=== PATIENT | male | born 1955 | race African-American/Black ===

== ENCOUNTER 2019-02-14 10:04 | Inpatient (IN) | payer OTHER ==
[2019-02-14 11:23] VITALS: BMI 21.7
--- NOTE | 2019-02-14 12:12 | HP ---
CIWA Score Nausea/Vomitin Muscle Tremors: 2 Anxiety: 3 Agitation: 3 Paroxysmal Sweats: No Perspiration Orientation: 0-Oriented Tacttile Disturbances: 1-Very Mild Itch/Numbness Auditory Disturbances: 0-None Visual Disturbances: 0-None Headache: 2-Mild CIWA-Ar Total Score: 13 - Admission Criteria OASAS Guidelines: Admission for Medically Managed Detox: Requires at least one of the followin. CIWA greater than 12 2. Seizures within the past 24 hours 3. Delirium tremens within the past 24 hours 4. Hallucinations within the past 24 hours 5. Acute intervention needed for co occurring medical disorder 6. Acute intervention needed for co occurring psychiatric disorder 7. Severe withdrawal that cannot be handled at a lower level of care (continued vomiting, continued diarrhea, abnormal vital signs) requiring intravenous medication and/or fluids 8. Admitting History and Physical - Smoking History Smoking history: Current every day smoker Have you smoked in the past 12 months: Yes Aproximately how many cigarettes per day: 5 - Alcohol/Substance Use Hx Alcohol Use: Yes Admission ROS BHS - HPI Chief Complaint: i need help to stop drinking alcohol Allergies/Adverse Reactions: Allergies Allergy/AdvReac Type Severity Reaction Status Date / Time No Known Allergies Allergy Verified 02/14/19 11:13 History of Present Illness: this 63 years old male with alcohol dependence seeking help to stop drinking, history of seizure ,last 2 years ago last detox [facility] 06/11/13 to 06/15/13 last rehab in [place] 06/24 depression,do not want to see psychiatrist longest sobriety 6 months plan for relocate after detox Exam Limitations: No Limitations - Ebola screening Have you traveled outside of the country in the last 21 days: No (N) Have you had contact with anyone from an Ebola affected area: No Do you have a fever: No - Review of Systems Constitutional: Loss of Appetite, Malaise, Night Sweats, Changes in sleep EENT: reports: Nose Congestion Respiratory: reports: No Symptoms reported Cardiac: reports: No Symptoms Reported GI: reports: Diarrhea, Nausea, Vomiting, Indigestion : reports: No Symptoms Reported Musculoskeletal: reports: Back Pain, Muscle Pain Integumentary: reports: Dryness Neuro: reports: Tremors Endocrine: reports: No Symptoms Reported Hematology: reports: No Symptoms Reported Psychiatric: reports: No Sypmtoms Reported, Judgement Intact, Mood/Affect Appropiate, Orientated x3, Depressed Other Systems: Reviewed and Negative Patient History - Patient Medical History Hx Anemia: No Hx Asthma: No Hx Chronic Obstructive Pulmonary Disease (COPD): No Hx Cancer: No Hx Cardiac Disorders: No Hx Congestive Heart Failure: No Hx Hypertension: No Hx Hypercholesterolemia: No Hx Pacemaker: No HX Cerebrovascular Accident: No Hx Seizures: Yes (09/2012) Hx Dementia: No Hx Diabetes: No Hx Gastrointestinal Disorders: No Hx Liver Disease: No Hx Genitourinary Disorders: No Hx Sexually Transmitted Disorders: No Hx Renal Disease (ESRD): No Hx Thyroid Disease: No Hx Human Immunodeficiency Virus (HIV): No (unknown did not want to be tested) Hx Hepatitis C: No Hx Depression: Yes Hx Suicide Attempt: No Hx Bipolar Disorder: No Hx Schizophrenia: No Other Medical History: no suicidal,no homicidal - Patient Surgical History Past Surgical History: Yes Hx Neurologic Surgery: No Hx Cataract Extraction: No Hx Cardiac Surgery: No Hx Lung Surgery: No Hx Breast Surgery: No Hx Breast Biopsy: No Hx Abdominal Surgery: No Hx Appendectomy: No Hx Cholecystectomy: No Hx Genitourinary Surgery: No Hx Section: No Hx Orthopedic Surgery: No Other Surgical History: removal of mass from scalp,benign in 2004 - PPD History Date: 06/13/13 - Smoking Cessation Smoking history: Former smoker Have you smoked in the past 12 months: Yes Aproximately how many cigarettes per day: 5 If you are a former smoker, when did you quit?: 01/20/19 Initiated information on smoking cessation: Yes 'Breaking Loose' booklet given: 02/14/19 - Substance & Tx. History Hx Alcohol Use: Yes Hx Substance Use: No Substance Use Type: Alcohol Hx Substance Use Treatment: Yes ([facility] 06/11/13 to 06/15/13,rehab 06/24 [facility]) - Substances abused Alcohol Frequency: Daily Amount used: 1-2 pints of vodka & 6 of 1 ozs of beer Age of first use: 23 Date of last use: 02/13/19 Marijuana/Hashish Substance route: Smoking Frequency: 3-6 times per week Amount used: 5 $ Age of first use: 19 Date of last use: 02/13/19 Admission Physical Exam BHS - Vital Signs Vital Signs: Vital Signs - 24 hr 02/14/19 02/14/19 11:16 11:45 Temperature 96.3 F L 96.3 F L Pulse Rate 80 80 Respiratory 20 20 Rate Blood Pressure 114/74 114/74 - Physical General Appearance: Yes: Moderate Distress, Tremorous, Irritable, Sweating, Anxious HEENTM: Yes: Normal ENT Inspection, [place], Pharynx Normal Respiratory: Yes: Lungs Clear, Normal Breath Sounds, No Respiratory Distress Neck: Yes: Within Normal Limits, Supple, Trachea in good position Breast: Yes: Within Normal Limits Cardiology: Yes: Within Normal Limits, Regular Rhythm, Regular Rate, S1, S2 Abdominal: Yes: Within Normal Limits Genitourinary: Yes: Within Normal Limits Back: Yes: Muscle Spasm Musculoskeletal: Yes: Back pain, Muscle Pain Extremities: Yes: Tremors Neurological: Yes: professional driver II-XII NML intact, Fully Oriented, Alert, Motor Strength 5/5 Integumentary: Yes: Dry Lymphatic: Yes: Within Normal Limits - Diagnostic (1) Alcohol dependence with uncomplicated withdrawal Current Visit: Yes Status: Acute (2) Seizure Current Visit: No Status: Active (3) Cannabis dependence Current Visit: Yes Status: Acute (4) syncope alcohol related Current Visit: No Status: Active (5) Low back pain Current Visit: No Status: Acute Cleared for Admission S - Detox or Rehab [facility] Level of Care: Medically Managed Detox Regimen/Protocol: Librium Breathalyzer - Breathalyzer Breathalyzer: 0.025 Urine Drug Screen - Test Device Lot number: [id number] Expiration date: 11/05/20 - Control Is test valid?: Yes - Results Drug screen NEGATIVE: No Urine drug screen results: THC-Marijuana Inpatient Rehab Admission - Rehab Decision to Admit Inpatient rehab admission?: No
[2019-02-14] MEDS ORDERED: METHOCARBAMOL 500 MG TABLET PO PRN (12:26)
[2019-02-14] MEDS ORDERED: MENTHOL/PHENOL 1 EACH UD MM PRN (12:26)
[2019-02-14] MEDS ORDERED: MAGNESIUM HYDROX 2400MG/30ML ORAL SUSPENSION 30 ML CUP PO PRN (12:26)
[2019-02-14] MEDS ORDERED: MAGNESIUM CITRATE 300 ML BOTTLE PO PRN (12:26)
[2019-02-14] MEDS ORDERED: MAG HYDROX/AL HYDROX/SIMETH 30 ML UNIT-DOSE CUP PO PRN (12:26)
[2019-02-14] MEDS ORDERED: ACETAMINOPHEN 325 MG TABLET (FP) PO PRN (12:26)
[2019-02-14] MEDS ORDERED: hydrOXYzine PAMOATE 25 MG CAPSULE (FP) PO PRN (12:26)
[2019-02-14] MEDS: chlordiazePOXIDE HCL 25 MG CAPSULE PO PRN (14:07)
[2019-02-14] MEDS: levETIRAcetam 500 MG TABLET (FP) PO SCH ×2 (14:07→22:10)
[2019-02-14] MEDS: chlordiazePOXIDE HCL 25 MG CAPSULE PO SCH ×2 (17:19→22:10)
[2019-02-14] MEDS: THIAMINE HCL 100 MG TABLET (FP) PO SCH (22:10)
[2019-02-14] MEDS: MELATONIN 5 MG TABLETS PO PRN (22:11)
[2019-02-15] MEDS: BISMUTH SUBSALICYLATE 524 MG/30 ML UD PO PRN ×3 (01:56→22:26)
[2019-02-15] MEDS: chlordiazePOXIDE HCL 25 MG CAPSULE PO PRN (01:56)
[2019-02-15] MEDS: chlordiazePOXIDE HCL 25 MG CAPSULE PO SCH ×4 (05:40→22:04)
--- NOTE | 2019-02-15 09:58 | PN ---
[facility] CIWA - CIWA Score Nausea/Vomitin-Mild Nausea/No Vomiting Muscle Tremors: 4-Moderate,w/Arms Extend Anxiety: 3 Agitation: 2 Paroxysmal Sweats: 1-Minimal Palms Moist Orientation: 1-Uncertain about Date (date of week) Tacttile Disturbances: 0-None Auditory Disturbances: 0-None Visual Disturbances: 0-None Headache: 0-None Present CIWA-Ar Total Score: 12 S Progress Note (SOAP) Subjective: 63 years old male admitted on 02/14/19 for alcohol withdrawal sx management treated with librium detox regimen patient tolerated well ate breakfast tolerated food and fluid well resting on bed prefers to stay in bed today Objective: 02/15/19 09:57 Vital Signs Temperature 97.2 F L 02/15/19 09:02 Pulse Rate 77 02/15/19 09:02 Respiratory Rate 18 02/15/19 09:02 Blood Pressure 101/69 02/15/19 09:02 O2 Sat by Pulse Oximetry (%) 02/15/19 09:57 lab pending Assessment: 02/15/19 09:57 alcohol withdrawal sx Plan: continue librium detox regimen
[2019-02-15] MEDS: PRENATAL VITAMINS W/ FOLIC ACID TABLET (FP) PO SCH (10:20)
[2019-02-15 10:29] LABS: HEMATOCRIT 38.5 % (35.4-49); HEMOGLOBIN 12.7 GM/dL (11.7-16.9); MCH 31.6 pg (25.7-33.7); MCHC 33.1 g/dl (32.0-35.9); MEAN CELL VOLUME 95.7 fl (80-96); MEAN PLT VOLUME 8.8 fl (7.5-11.1); PLATELET COUNT 169 K/MM3 (134-434); RBC 4.02 M/mm3 (4.00-5.60); RDW 13.6 % (11.9-15.9); WHITE BLOOD COUNT 4.4 K/mm3 (4.0-10.0)
[2019-02-15 10:30] LABS: ALBUMIN 3.7 g/dl (3.4-5.0); BILIRUBIN,TOTAL 1.2 mg/dL (0.2-1); BLOOD UREA NITROGEN 8.5 mg/dL (7-18); CALCIUM 8.6 mg/dL (8.5-10.1); CREATININE 0.8 mg/dL (0.55-1.3); POTASSIUM 4.1 mmol/L (3.5-5.1); TOT PROT 6.1 g/dl (6.4-8.2)
[2019-02-15] MEDS: levETIRAcetam 500 MG TABLET (FP) PO SCH ×2 (11:33→22:04)
[2019-02-15] MEDS: THIAMINE HCL 100 MG TABLET (FP) PO SCH (22:03)
[2019-02-15] MEDS: MELATONIN 5 MG TABLETS PO PRN (22:04)
[2019-02-16] MEDS: BISMUTH SUBSALICYLATE 524 MG/30 ML UD PO PRN ×4 (01:59→22:12)
[2019-02-16] MEDS: MELATONIN 5 MG TABLETS PO PRN ×2 (02:00→22:10)
[2019-02-16] MEDS: chlordiazePOXIDE HCL 25 MG CAPSULE PO SCH ×4 (06:01→22:09)
--- NOTE | 2019-02-16 09:54 | PN ---
[facility] CIWA - CIWA Score Nausea/Vomitin-Mild Nausea/No Vomiting Muscle Tremors: 3 Anxiety: 2 Agitation: 1-Slight > Activity Paroxysmal Sweats: 2 Orientation: 1-Uncertain about Date Tacttile Disturbances: 1-Very Mild Itch/Numbness Auditory Disturbances: 0-None Visual Disturbances: 0-None Headache: 0-None Present CIWA-Ar Total Score: 11 BHS Progress Note (SOAP) Subjective: 63 years old male admitted on 02/14/19 for alcohol withdrawal sx management treated with librium detox regimen patient is alert oriented x 3 ate breakfast resting on bed patient requests to be discharged on estimated date on 02/19/19 and bringing home librium discuss alcohol treatment options emphasizing behavior and psychosocial therapies Objective: 02/16/19 09:54 Vital Signs Temperature 97.6 F 02/16/19 09:20 Pulse Rate 76 02/16/19 09:20 Respiratory Rate 18 02/16/19 09:20 Blood Pressure 96/67 02/16/19 09:20 O2 Sat by Pulse Oximetry (%) Laboratory Last Values WBC 4.4 K/mm3 (4.0-10.0) 02/15/19 07:50 RBC 4.02 M/mm3 (4.00-5.60) 02/15/19 07:50 Hgb 12.7 GM/dL (11.7-16.9) 02/15/19 07:50 Hct 38.5 % (35.4-49) 02/15/19 07:50 MCV 95.7 fl (80-96) 02/15/19 07:50 MCH 31.6 pg (25.7-33.7) 02/15/19 07:50 MCHC 33.1 g/dl (32.0-35.9) 02/15/19 07:50 RDW 13.6 % (11.9-15.9) 02/15/19 07:50 Plt Count 169 K/MM3 (134-434) 02/15/19 07:50 MPV 8.8 fl (7.5-11.1) D 02/15/19 07:50 Sodium 140 mmol/L (136-145) 02/15/19 07:40 Potassium 4.1 mmol/L (3.5-5.1) 02/15/19 07:40 Chloride 106 mmol/L (98-107) 02/15/19 07:40 Carbon Dioxide 30 mmol/L (21-32) 02/15/19 07:40 Anion Gap 5 MMOL/L (8-16) L 02/15/19 07:40 BUN 8.5 mg/dL (7-18) 02/15/19 07:40 Creatinine 0.8 mg/dL (0.55-1.3) 02/15/19 07:40 Est GFR (CKD-EPI)AfAm 111.74 02/15/19 07:40 Est GFR (CKD-EPI)NonAf 96.41 02/15/19 07:40 Random Glucose 88 mg/dL (74-106) 02/15/19 07:40 Calcium 8.6 mg/dL (8.5-10.1) 02/15/19 07:40 Total Bilirubin 1.2 mg/dL (0.2-1) H 02/15/19 07:40 AST 45 U/L (15-37) H 02/15/19 07:40 ALT 47 U/L (13-61) 02/15/19 07:40 Alkaline Phosphatase 74 U/L (45-117) 02/15/19 07:40 Total Protein 6.1 g/dl (6.4-8.2) L 02/15/19 07:40 Albumin 3.7 g/dl (3.4-5.0) 02/15/19 07:40 RPR Titer Nonreactive (NONREACTIVE) 02/15/19 07:40 lab noted Assessment: 02/16/19 09:54 alcohol withdrawal sx Plan: continue librium detox regimen
[2019-02-16] MEDS: levETIRAcetam 500 MG TABLET (FP) PO SCH ×2 (10:21→22:09)
[2019-02-16] MEDS: PRENATAL VITAMINS W/ FOLIC ACID TABLET (FP) PO SCH (10:21)
[2019-02-16] MEDS: IBUPROFEN 400 MG TABLET (FP) PO PRN ×2 (14:19→22:09)
[2019-02-16] MEDS: ACETAMINOPHEN 325 MG TABLET (FP) PO PRN (17:37)
[2019-02-16] MEDS: THIAMINE HCL 100 MG TABLET (FP) PO SCH (22:09)
[2019-02-17] MEDS ORDERED: chlordiazePOXIDE HCL 10 MG CAPSULE PO PRN
[2019-02-17] MEDS: chlordiazePOXIDE HCL 10 MG CAPSULE PO SCH ×2 (05:43→10:03)
[2019-02-17] MEDS: ACETAMINOPHEN 325 MG TABLET (FP) PO PRN (07:48)
[2019-02-17 09:31] LABS: URINE APPEARANCE CLEAR; URINE BILIRUBIN NEGATIVE (NEGATIVE); URINE COLOR YELLOW; URINE GLUCOSE (UA) NEGATIVE (NEGATIVE); URINE KETONE NEGATIVE (NEGATIVE); URINE LEUK ESTERASE NEGATIVE (NEGATIVE); URINE NITRITE NEGATIVE (NEGATIVE); URINE PROTEIN NEGATIVE (NEGATIVE); URINE UROBILINOGEN 0.2 mg/dL (0.2-1.0)
[2019-02-17 09:37] VITALS: BP 102/72; PULSE 70; TEMP 96.6
[2019-02-17] MEDS: PRENATAL VITAMINS W/ FOLIC ACID TABLET (FP) PO SCH (10:01)
[2019-02-17] MEDS: levETIRAcetam 500 MG TABLET (FP) PO SCH (10:01)
--- NOTE | 2019-02-17 13:35 | DS ---
[facility] Detox Discharge Summary Admission Date: 02/14/19 Discharge Date: 02/17/19 - History Present History: Alcohol Dependence Additional Comments: 63 years old male admitted on 02/14/19 for alcohol withdrawal sx management treated with librium detox regimen patient is alert oriented x 3 respiratory clear lung bilaterally on auscultation abdomen soft no rebound tenderness extremities full range of motion Pertinent Past History: patient prefers to leave the detox unit today case discuss with nurse and counselor patient can be discharged to aftercare - Physical Exam Results Vital Signs: Vital Signs Temperature 96.6 F L 02/17/19 09:36 Pulse Rate 70 02/17/19 09:36 Respiratory Rate 18 02/17/19 09:36 Blood Pressure 102/72 02/17/19 09:36 O2 Sat by Pulse Oximetry (%) Pertinent Admission Physical Exam Findings: alcohol withdrawal sx Laboratory Last Values WBC 4.4 K/mm3 (4.0-10.0) 02/15/19 07:50 RBC 4.02 M/mm3 (4.00-5.60) 02/15/19 07:50 Hgb 12.7 GM/dL (11.7-16.9) 02/15/19 07:50 Hct 38.5 % (35.4-49) 02/15/19 07:50 MCV 95.7 fl (80-96) 02/15/19 07:50 MCH 31.6 pg (25.7-33.7) 02/15/19 07:50 MCHC 33.1 g/dl (32.0-35.9) 02/15/19 07:50 RDW 13.6 % (11.9-15.9) 02/15/19 07:50 Plt Count 169 K/MM3 (134-434) 02/15/19 07:50 MPV 8.8 fl (7.5-11.1) D 02/15/19 07:50 Sodium 140 mmol/L (136-145) 02/15/19 07:40 Potassium 4.1 mmol/L (3.5-5.1) 02/15/19 07:40 Chloride 106 mmol/L (98-107) 02/15/19 07:40 Carbon Dioxide 30 mmol/L (21-32) 02/15/19 07:40 Anion Gap 5 MMOL/L (8-16) L 02/15/19 07:40 BUN 8.5 mg/dL (7-18) 02/15/19 07:40 Creatinine 0.8 mg/dL (0.55-1.3) 02/15/19 07:40 Est GFR (CKD-EPI)AfAm 111.74 02/15/19 07:40 Est GFR (CKD-EPI)NonAf 96.41 02/15/19 07:40 Random Glucose 88 mg/dL (74-106) 02/15/19 07:40 Calcium 8.6 mg/dL (8.5-10.1) 02/15/19 07:40 Total Bilirubin 1.2 mg/dL (0.2-1) H 02/15/19 07:40 AST 45 U/L (15-37) H 02/15/19 07:40 ALT 47 U/L (13-61) 02/15/19 07:40 Alkaline Phosphatase 74 U/L (45-117) 02/15/19 07:40 Total Protein 6.1 g/dl (6.4-8.2) L 02/15/19 07:40 Albumin 3.7 g/dl (3.4-5.0) 02/15/19 07:40 Urine Color Yellow 02/17/19 08:10 Urine Appearance Clear 02/17/19 08:10 Urine pH 7.0 (5.0-8.0) 02/17/19 08:10 Ur Specific [place] 1.007 (1.010-1.035) L 02/17/19 08:10 Urine Protein Negative (NEGATIVE) 02/17/19 08:10 Urine Glucose (UA) Negative (NEGATIVE) 02/17/19 08:10 Urine Ketones Negative (NEGATIVE) 02/17/19 08:10 Urine Blood Negative (NEGATIVE) 02/17/19 08:10 Urine Nitrite Negative (NEGATIVE) 02/17/19 08:10 Urine Bilirubin Negative (NEGATIVE) 02/17/19 08:10 Urine Urobilinogen 0.2 mg/dL (0.2-1.0) 02/17/19 08:10 Ur Leukocyte Esterase Negative (NEGATIVE) 02/17/19 08:10 RPR Titer Nonreactive (NONREACTIVE) 02/15/19 07:40 lab noted - Treatment Hospital Course: Detox Protocol Followed, Detoxed Safely, Responded well, Discharged Condition Good, Rehab Referral Accepted Patient has Accepted a Rehab Referral to: [facility] - Medication Discharge Medications: Ambulatory Orders levETIRAcetam [Keppra -] 750 mg PO BID #60 tablet 02/17/19 - Diagnosis (1) Seizure Status: Chronic (2) Alcohol dependence with uncomplicated withdrawal Status: Acute (3) Essential hypertension Status: Chronic - AMA Did Patient Leave Against Medical Advice: No CIWA Score - CIWA Score Nausea/Vomitin-No Nausea/No Vomiting Muscle Tremors: 2 Anxiety: 1-Mildly Anxious Agitation: 0-Normal Activity Paroxysmal Sweats: 1-Minimal Palms Moist Orientation: 0-Oriented Tacttile Disturbances: 1-Very Mild Itch/Numbness Auditory Disturbances: 0-None Visual Disturbances: 0-None Headache: 0-None Present CIWA-Ar Total Score: 5
[2019-02-18] MEDS ORDERED: chlordiazePOXIDE HCL 10 MG CAPSULE PO SCH (05:00)
[2019-02-19] MEDS ORDERED: chlordiazePOXIDE HCL 10 MG CAPSULE PO ONE (05:00)
== END 2019-02-17 11:30 | disposition home or self-care (01) | DRG 897 ==
LOC: YASAS 10:04 → Y3N 12:57
PROVIDERS: ADMIT Allergy & Immunology; ATTEND Allergy & Immunology
PROC: HZ2ZZZZ Detoxification Services for Substance Abuse Treatment (ICD-10-PCS; principal; 2019-02-14)
DX: F10.230 Alcohol dependence with withdrawal, uncomplicated (principal); F12.20 Cannabis dependence, uncomplicated; F32.9 Major depressive disorder, single episode, unspecified; I10 Essential (primary) hypertension; G40.909 Epilepsy, unspecified, not intractable, without status epilepticus; M54.5 Low back pain; Z87.891 Personal history of nicotine dependence
CPT/HCPCS: 36415; 80053; 81003; 85027; 86593

== ENCOUNTER 2021-03-10 18:10 | Inpatient (IN) | payer OTHER ==
[2021-03-10] MEDS ORDERED: MAGNESIUM HYDROX 2400MG/30ML ORAL SUSPENSION 30 ML CUP PO PRN (19:12)
[2021-03-10] MEDS ORDERED: ONDANSETRON *ODT* 4 MG TABLET SL PRN (19:12)
[2021-03-10] MEDS ORDERED: IBUPROFEN 400 MG TABLET (FP) PO PRN (19:12)
[2021-03-10] MEDS ORDERED: ACETAMINOPHEN 325 MG TABLET (FP) PO PRN (19:12)
[2021-03-10] MEDS ORDERED: METHOCARBAMOL 500 MG TABLET PO PRN (19:12)
[2021-03-10] MEDS ORDERED: NICOTINE 10 MG CARTRIDGE (INHALER) IH PRN (19:12)
[2021-03-10] MEDS ORDERED: MAG HYDROX/AL HYDROX/SIMETH 30 ML UNIT-DOSE CUP PO PRN (19:12)
[2021-03-10] MEDS ORDERED: chlordiazePOXIDE HCL 25 MG CAPSULE PO PRN (19:12)
[2021-03-10] MEDS ORDERED: hydrOXYzine PAMOATE 25 MG CAPSULE (FP) PO PRN (19:12)
[2021-03-10] MEDS ORDERED: MENTHOL/PHENOL 1 EACH UD MM PRN (19:12)
[2021-03-10] MEDS ORDERED: MAGNESIUM CITRATE 300 ML BOTTLE PO PRN (19:12)
[2021-03-10] MEDS ORDERED: chlordiazePOXIDE HCL 25 MG CAPSULE ONE (19:27)
[2021-03-10 19:49] VITALS: BMI 22.0
[2021-03-10] MEDS: THIAMINE HCL 100 MG TABLET (FP) PO SCH (22:26)
[2021-03-10] MEDS: chlordiazePOXIDE HCL 25 MG CAPSULE PO SCH (22:27)
[2021-03-10] MEDS: MELATONIN 5 MG TABLETS PO SCH (22:32)
[2021-03-11] MEDS: chlordiazePOXIDE HCL 25 MG CAPSULE PO SCH ×4 (05:35→22:39)
[2021-03-11] MEDS: ACETAMINOPHEN 325 MG TABLET (FP) PO PRN (05:41)
[2021-03-11] MEDS: PRENATAL VITAMINS W/ FOLIC ACID TABLET (FP) PO SCH (10:38)
[2021-03-11] MEDS: LIDOCAINE 5% TOPICAL PATCH TP SCH (13:22)
[2021-03-11] MEDS: THIAMINE HCL 100 MG TABLET (FP) PO SCH (22:39)
[2021-03-11] MEDS: MELATONIN 5 MG TABLETS PO SCH (22:44)
[2021-03-11] MEDS: LIDOCAINE PATCH REMOVAL MC SCH (22:44)
[2021-03-12] MEDS: BISMUTH SUBSALICYLATE 524 MG/30 ML PO PRN ×3 (00:14→17:52)
[2021-03-12] MEDS: ACETAMINOPHEN 325 MG TABLET (FP) PO PRN (05:35)
[2021-03-12] MEDS: chlordiazePOXIDE HCL 25 MG CAPSULE PO SCH ×2 (05:48→11:07)
[2021-03-12] MEDS: LIDOCAINE 5% TOPICAL PATCH TP SCH (11:06)
[2021-03-12] MEDS: PRENATAL VITAMINS W/ FOLIC ACID TABLET (FP) PO SCH (11:06)
[2021-03-12] MEDS ORDERED: hydrOXYzine PAMOATE 25 MG CAPSULE (FP) PO PRN (11:09)
[2021-03-12] MEDS ORDERED: chlordiazePOXIDE HCL 25 MG CAPSULE PO SCH (17:00)
[2021-03-12] MEDS ORDERED: chlordiazePOXIDE HCL 10 MG CAPSULE PO SCH (17:36)
[2021-03-12] MEDS: chlordiazePOXIDE HCL 10 MG CAPSULE PO SCH ×2 (17:49→22:29)
[2021-03-12] MEDS: MELATONIN 5 MG TABLETS PO SCH (22:28)
[2021-03-12] MEDS: THIAMINE HCL 100 MG TABLET (FP) PO SCH (22:28)
[2021-03-12] MEDS: LIDOCAINE PATCH REMOVAL MC SCH (22:30)
[2021-03-13] MEDS ORDERED: chlordiazePOXIDE HCL 10 MG CAPSULE PO PRN
[2021-03-13] MEDS ORDERED: chlordiazePOXIDE HCL 10 MG CAPSULE PO SCH (05:00)
[2021-03-13] MEDS: chlordiazePOXIDE HCL 10 MG CAPSULE PO SCH ×3 (06:24→23:35)
[2021-03-13] MEDS: LIDOCAINE 5% TOPICAL PATCH TP SCH (10:57)
[2021-03-13] MEDS: PRENATAL VITAMINS W/ FOLIC ACID TABLET (FP) PO SCH (10:58)
[2021-03-13] MEDS: BISMUTH SUBSALICYLATE 524 MG/30 ML PO PRN (10:58)
[2021-03-13] MEDS: LACTULOSE 20 GM/30 ML UDC (FOR ORAL USE ONLY) PO SCH ×2 (13:05→23:13)
[2021-03-13 13:07] LABS: HEMATOCRIT 39.1 % (35.4-49); MCH 33.6 pg (25.7-33.7); MCHC 33.3 g/dl (32.0-35.9); MEAN CELL VOLUME 100.8 fl (80-96); MEAN PLT VOLUME 10.9 fl (7.5-11.1); PLATELET COUNT 90 10^3/uL (134-434); RBC 3.88 M/mm3 (4.00-5.60); RDW 14.2 % (11.9-15.9); WHITE BLOOD COUNT 4.4 K/mm3 (4.0-10.0)
[2021-03-13 13:12] LABS: CALCIUM 9.4 mg/dL (8.5-10.1)
[2021-03-13 13:13] LABS: ALBUMIN 3.9 g/dl (3.4-5.0); BLOOD UREA NITROGEN 5.9 mg/dL (7-18)
[2021-03-13 13:16] LABS: CREATININE 0.8 mg/dL (0.55-1.3)
[2021-03-13 13:17] LABS: BILIRUBIN,TOTAL 0.9 mg/dL (0.2-1); TOT PROT 7.4 g/dl (6.4-8.2)
[2021-03-13] MEDS: MELATONIN 5 MG TABLETS PO SCH (23:12)
[2021-03-13] MEDS: THIAMINE HCL 100 MG TABLET (FP) PO SCH (23:12)
[2021-03-13] MEDS: LIDOCAINE PATCH REMOVAL MC SCH (23:12)
[2021-03-14] MEDS: chlordiazePOXIDE HCL 10 MG CAPSULE PO SCH ×2 (06:00→18:54)
[2021-03-14] MEDS: LACTULOSE 20 GM/30 ML UDC (FOR ORAL USE ONLY) PO SCH ×3 (06:16→22:30)
[2021-03-14] MEDS: BISMUTH SUBSALICYLATE 524 MG/30 ML PO PRN (06:48)
[2021-03-14] MEDS: PRENATAL VITAMINS W/ FOLIC ACID TABLET (FP) PO SCH (10:30)
[2021-03-14] MEDS: LIDOCAINE 5% TOPICAL PATCH TP SCH (12:03)
[2021-03-14] MEDS: MELATONIN 5 MG TABLETS PO SCH (22:30)
[2021-03-14] MEDS: THIAMINE HCL 100 MG TABLET (FP) PO SCH (22:30)
[2021-03-15] MEDS: LIDOCAINE PATCH REMOVAL MC SCH (00:31)
[2021-03-15] MEDS ORDERED: chlordiazePOXIDE HCL 10 MG CAPSULE PO ONE (05:00)
[2021-03-15] MEDS: LACTULOSE 20 GM/30 ML UDC (FOR ORAL USE ONLY) PO SCH (05:21)
[2021-03-15 08:57] VITALS: BP 103/98; PULSE 95; TEMP 97.3
[2021-03-15] MEDS: PRENATAL VITAMINS W/ FOLIC ACID TABLET (FP) PO SCH (10:10)
[2021-03-15] MEDS: LIDOCAINE 5% TOPICAL PATCH TP SCH (10:11)
== END 2021-03-15 11:08 | disposition home or self-care (01) | DRG 775 ==
LOC: YASAS 18:10 → Y6N 19:55
PROVIDERS: ADMIT Allergy & Immunology; ATTEND Allergy & Immunology
PROC: HZ2ZZZZ Detoxification Services for Substance Abuse Treatment (ICD-10-PCS; principal; 2021-03-10)
DX: F10.230 Alcohol dependence with withdrawal, uncomplicated (principal); F12.20 Cannabis dependence, uncomplicated; I10 Essential (primary) hypertension; E72.20 Disorder of urea cycle metabolism, unspecified; Z87.891 Personal history of nicotine dependence
CPT/HCPCS: 36415; 80053; 82140; 85027; 86780; 93005; 93010; C9803; U0003; U0005